=== PATIENT | female | born 1970 | race Two or more races ===

== ENCOUNTER 2021-06-28 15:04 | Emergency (ER) | payer OTHER ==
[~2021-06-28] VITALS: Ht 152.4 cm; Wt 88.9 kg
[2021-06-28] MEDS ORDERED: MOTRIN IB200 M1 PO (15:51)
[2021-06-28] MEDS ORDERED: TOPROL XL25 M1 (15:51)
[2021-06-28] MEDS ORDERED: CIPRO500 MG PO (20:07)
== END 2021-06-28 20:47 | disposition home or self-care (01) ==
LOC: ER 15:04
DX: D25.9 Leiomyoma of uterus, unspecified (principal); N30.90 Cystitis, unspecified without hematuria; I10 Essential (primary) hypertension